=== PATIENT | female | born 1995 | race Caucasian/White ===

== ENCOUNTER 2019-05-23 14:09 | Emergency (ER) | payer OTHER ==
[~2019-05-23] VITALS: Ht 172.7 cm; Wt 104.8 kg
[2019-05-23 14:14] VITALS: Ht 172.7 cm; Wt 104.8 kg
[2019-05-23 17:36] VITALS: BP 128/74
== END 2019-05-23 17:36 | disposition home or self-care (01) ==
LOC: ED 14:09
DX: R33.9 Retention of urine, unspecified (principal); N39.0 Urinary tract infection, site not specified; F32.9 Major depressive disorder, single episode, unspecified
CPT/HCPCS: 87491; 87591

== ENCOUNTER 2019-05-26 11:53 | Emergency (ER) | payer OTHER ==
[~2019-05-26] VITALS: Ht 175.3 cm; Wt 101.6 kg
[2019-05-26 12:04] VITALS: Ht 175.3 cm; Wt 101.6 kg
[2019-05-26 14:19] VITALS: BP 124/79
== END 2019-05-26 14:19 | disposition home or self-care (01) ==
LOC: ED 11:53
DX: R33.9 Retention of urine, unspecified (principal); Z46.6 Encounter for fitting and adjustment of urinary device; Z13.89 Encounter for screening for other disorder; F32.9 Major depressive disorder, single episode, unspecified

== ENCOUNTER 2019-05-27 19:02 | Emergency (ER) | payer OTHER ==
[~2019-05-27] VITALS: Ht 172.7 cm; Wt 94.8 kg
[2019-05-27 19:08] VITALS: Ht 172.7 cm; Wt 94.8 kg
[2019-05-27 19:37] LABS: UA SPECIFIC GRAVITY 1.015 (1.005-1.035); microscopic required? YES; urine erythrocyte 1+ (NEGATIVE)
[2019-05-27 20:01] VITALS: BP 133/76
== END 2019-05-27 20:01 | disposition home or self-care (01) ==
LOC: ED 19:02
PROVIDERS: Specialist
DX: R33.9 Retention of urine, unspecified (principal); N39.0 Urinary tract infection, site not specified; F32.9 Major depressive disorder, single episode, unspecified